=== PATIENT | male | born 1940 | race Caucasian/White ===

== ENCOUNTER → 2022-11-17 09:49 | Outpatient (BNVA) | payer MEDICARE, SELFPAY | PROVIDERS: Family Provider Nurse Practitioner; PCP Family Medicine; Visit Provider Nurse Practitioner Family | DX: R05.9 Cough, unspecified (principal) | CPT/HCPCS: 87400; 87426 ==

== ENCOUNTER → 2024-06-02 12:01 | Outpatient (BNVA) | payer MEDICARE, SELFPAY | PROVIDERS: Family Provider Nurse Practitioner; PCP Family Medicine; Visit Provider Family Medicine | DX: M79.605 Pain in left leg (principal); G89.29 Other chronic pain; M54.9 Dorsalgia, unspecified; E87.1 Hypo-osmolality and hyponatremia; I10 Essential (primary) hypertension; I25.5 Ischemic cardiomyopathy; I25.10 Atherosclerotic heart disease of native coronary artery without angina pectoris; I48.0 Paroxysmal atrial fibrillation; E78.00 Pure hypercholesterolemia, unspecified; E11.65 Type 2 diabetes mellitus with hyperglycemia | CPT/HCPCS: 80053; 80061; 82043; 83036; 84439; 84443; 85025 ==

== ENCOUNTER 2024-07-03 09:04 | Outpatient (CLI) | payer MEDICARE, SELFPAY ==
--- NOTE | 2024-07-03 09:30 | USR_ITS ---
PROCEDURE INFORMATION: Exam: US Bilateral Noninvasive Physiologic Study of the Lower Extremity Arteries, Limited Exam date and time: 07/03/2024 9:15 AM Age: 83 years old Clinical indication: Pain; Leg, lower; Bilateral; Additional info: Claudication/poor circulation, call daughter naomi to schedule this appt please--leave TECHNIQUE: Imaging protocol: Bilateral Limited bilateral noninvasive physiologic studies of lower extremity arteries. Waveforms were obtained and evaluated. Images were documented and archived. Exam is limited. COMPARISON: No relevant prior studies available. FINDINGS: Right femoral arteries: Limited study, not evaluated. Right infrapopliteal arteries: Limited study, not evaluated. 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 Right Ankle-Brachial Index: 1.6 Left Ankle-Brachial Index: N/A US/CV ankle brachial index 17410 IMPRESSION: The right lower extremity KIAN equals 1.6 which is likely artificially elevated at the patient has known diffuse tibial artery calcifications (no sonographic images of the arteries were submitted).
== END 2024-07-03 09:05 | disposition home or self-care (01) ==
PROVIDERS: PCP Family Medicine; Visit Provider Family Medicine
DX: M79.605 Pain in left leg (principal); G89.29 Other chronic pain; R93.89 Abnormal findings on diagnostic imaging of other specified body structures
CPT/HCPCS: 93922

== ENCOUNTER → 2024-12-01 10:27 | Outpatient (BNVA) | payer MEDICARE, SELFPAY | PROVIDERS: PCP Family Medicine; Visit Provider Family Medicine | DX: I10 Essential (primary) hypertension (principal); I48.0 Paroxysmal atrial fibrillation; Z79.01 Long term (current) use of anticoagulants; E78.00 Pure hypercholesterolemia, unspecified; E11.65 Type 2 diabetes mellitus with hyperglycemia; E87.1 Hypo-osmolality and hyponatremia; R04.2 Hemoptysis | CPT/HCPCS: 80053; 82607; 83036; 83540; 84439; 84443; 85025 ==

== ENCOUNTER 2024-12-09 14:17 | Outpatient (CLI) | payer MEDICARE, SELFPAY ==
--- NOTE | 2024-12-09 14:30 | CTR_ITS ---
PROCEDURE INFORMATION: Exam: CT Chest Without Contrast; Diagnostic Exam date and time: 12/09/2024 2:31 PM Age: 83 years old Clinical indication: Cough with hemorrhage; Additional info: Hemoptysis TECHNIQUE: Imaging protocol: Diagnostic computed tomography of the chest without contrast. Radiation optimization: All CT scans at this facility use at least one of these dose optimization techniques: automated exposure control; mA and/or kV adjustment per patient size (includes targeted exams where dose is matched to clinical indication); or iterative reconstruction. COMPARISON: No relevant prior studies available. RADIATION DOSE METRICS: Total DLP (mGy-cm): 348.79 FINDINGS: Thyroid: Visualized portion of the thyroid gland appears unremarkable. Trachea: Central airways are clear. No significant bronchiectasis. Lungs: 1.3 x 1.6 cm subpleural ground-glass airspace opacity within the right upper lobe. Small 2 mm nodule within the posteromedial aspect of the right upper lobe (image 13 of series 4). Area of pleural-based nodularity and atelectatic changes present within the posterior aspect of the right lower lobe. 5.4 mm subpleural nodule within the lateral aspect of the right lower lobe (image 35 of series 4). Area of peripheral pleural thickening and nodularity is present within the inferolateral aspect of the left lower lobe (image 40 of series 4). 3.4 mm nodule within the lingula (image 32 of series 4). 3.1 mm nodule within the left upper lobe (image 17 of series 4). There are a few additional scattered small less than 2 mm nodules and a few scattered benign calcified granulomas. Pleural spaces: Very small left pleural effusion. Trace right pleural effusion. Dense pleural plaques are present within the posterior aspect of the right lower lung. 3.0 x 3.1 x 4.0 cm pleural-based mass is present within the posterior left lower lobe. Surrounding additional ground-glass and patchy airspace consolidation is present. Findings highly concerning for neoplastic disease. Rounded atelectatic change could also be considered. Heart: Mild cardiomegaly. No pericardial effusion. Large amount of heavy dense coronary artery calcifications are present. Faint calcifications are present at the mitral valve annulus. Faint calcification is present along the intraventricular septum. Lymph nodes: No suspicious lymphadenopathy or mass within the visualized portion of the upper abdomen. There are a few mildly prominent lymph nodes within the tracheoesophageal groove. Largest measures up to 7 mm in short axis. Enlarged precarinal lymph node measures up to 1.6 cm in short axis. This has a normal fatty hilum. Additional small shotty lymph nodes are present within the prevascular space and pretracheal space. No subcarinal lymphadenopathy. There is fullness of the intrapulmonary lymphoid tissue at the right and left hilum. No discrete hilar mass. Evaluation of the hilar structures is limited by lack of intravenous contrast. Vasculature: Normal caliber of the ascending and descending thoracic aorta. Lack of intravenous contrast limits evaluation. Dense peripheral atherosclerotic plaque at the aortic arch and extending into the origins of the great vessels. [id number] amount of atherosclerotic plaque along the length of the descending thoracic aorta. Fullness of the main pulmonary artery. Heavy atherosclerotic plaque along the visualized portion of the upper abdominal aorta and branch vessels. Gallbladder and biliary ducts: Gallbladder is decompressed. Adrenal glands: Visualized portion of the right and left adrenal gland appear unremarkable. Adrenal glands are not fully imaged. Intraperitoneal space: Remainder of the visualized structures within the upper abdomen are unremarkable for a noncontrast evaluation. Bones/joints: Old compression fracture deformity and post vertebroplasty changes are present at T12. The bones are diffusely demineralized. No suspicious lytic or sclerotic bone lesion. No acute fracture. Multilevel degenerative changes are present throughout the visualized portion of the spine. Soft tissues: No axillary mass or lymphadenopathy. There are no enlarged supraclavicular lymph nodes. 3.2 cm lipoma within the lateral chest wall musculature along the mid aspect of the left chest wall (image 30 of series 3). Remainder of the soft tissue structures surrounding the chest appear unremarkable. Other findings: Punctate calcifications are present at the right and left hilum likely corresponding to prior granulomatous disease. CT/CT chest wo con [id number] IMPRESSION: 1. 3.0 x 3.1 x 4.0 cm pleural-based mass is present within the posterior left lower lobe. Surrounding additional ground-glass and patchy airspace consolidation is present. Findings highly concerning for neoplastic disease. Rounded pneumonia or rounded atelectatic change could also be considered. Findings are concerning for neoplastic disease until proven otherwise. Pulmonology consultation is recommended. Percutaneous biopsy or PET-CT scan may be indicated. Follow-up CT scan of the chest with intravenous contrast could also be considered as initial further evaluation. 2. There are additional scattered pulmonary nodules within the right and left lung as described. 3. Enlarged precarinal lymph node. This has a normal fatty hilum. This is nonspecific. Additional smaller lymph nodes are present within the tracheoesophageal groove. 4. Small left pleural effusion. 5. Trace right pleural effusion. Pleural thickening and pleural plaques are present posteriorly within the right lower lobe. 6. Mild cardiomegaly. Large amount of heavy dense coronary artery calcifications are present. 7. Additional nonurgent findings as described.
== END 2024-12-09 14:18 | disposition home or self-care (01) ==
LOC: RAD 14:21
PROVIDERS: PCP Family Medicine; Visit Provider Family Medicine
DX: R04.2 Hemoptysis (principal); R91.8 Other nonspecific abnormal finding of lung field; R59.0 Localized enlarged lymph nodes; J90 Pleural effusion, not elsewhere classified; J92.9 Pleural plaque without asbestos; I51.7 Cardiomegaly; I25.10 Atherosclerotic heart disease of native coronary artery without angina pectoris; I70.0 Atherosclerosis of aorta; R93.3 Abnormal findings on diagnostic imaging of other parts of digestive tract; M48.54XD Collapsed vertebra, not elsewhere classified, thoracic region, subsequent encounter for fracture with routine healing; Z98.890 Other specified postprocedural states; M47.9 Spondylosis, unspecified; D17.79 Benign lipomatous neoplasm of other sites; R93.89 Abnormal findings on diagnostic imaging of other specified body structures
CPT/HCPCS: 71250